=== PATIENT | male | born 1990 | race Caucasian/White ===

== ENCOUNTER 2017-07-30 20:30 | Emergency (ER) | payer SELFPAY ==
[2017-07-30 20:47] VITALS: RESP 16
[2017-07-30] MEDS ORDERED: AMOXICILLIN/CLAVULANATE POT 875/125 MG TAB PO ONE (20:52)
[2017-07-30] MEDS ORDERED: SULFAMETHOX/TMP 800/160 MG 1 TAB PO ONE (20:53)
--- NOTE | 2017-07-30 21:04 | EDPHY ---
H & P Time Seen by Provider: 07/30/17 20:38 HPI/ROS: HPI Ears swelling, neck pain. 27-year-old male by private vehicle with his mother. He has a history of body piercing. He wears large metal loops in both earlobes called gauges. He reports that he went to sleep last night and woke up this morning with his ear lobes very swollen, red and painful. No history of trauma. He took the gauges out. He also reports that he was wrestling with some friends and tackled 2 of them 2 weeks ago. Since that time he has had lower cervical upper thoracic pain mostly on the left side paraspinal. He reports that it is worse with extension of his head and neck. No loss of sensation or weakness in his extremities. He did not hit his head from this event. There was no loss of consciousness. ROS: Constitutional: No fever, no chills. No weakness. Eyes: No discharge. No changes in vision. ENT: No sore throat. No nasal congestion or rhinorrhea. As above. Respiratory: No cough. No shortness of breath. Cardiac: No chest pain, no palpitations. Musculoskeletal: As above. No extremity pain. Skin: No rashes. As above. Neurological: No headache. No focal weakness or altered sensation. Past medical history: Exercise-induced asthma, concussions, cellulitis in arm from staph infection years ago. Social history: With his mother. Denies alcohol. Nonsmoker. Physical Exam: General Appearance: Alert, no distress. This patient is responding to questions appropriately and in full sentences. This patient appears well- hydrated and well-nourished. Head: Normocephalic atraumatic except for multiple piercings with various earrings, spikes another hardware. Face: Facial bones are stable on palpation. Eyes: Pupils equal and round and reactive to light, no pallor or injection. No lid erythema or edema. ENT: Examination of his auricles bilaterally significant for erythema, swelling and a weeping purulent fluid involving the lobule of the auricle. Globules or significantly dilated from the large piercing/gauge is he has been wearing in them for some time. There is no drainable abscess. The erythema and swelling is isolated to just the lobule son does not involve the rest of the auricle or other ear soft tissue structures. No postauricular swelling, erythema or tenderness on palpation. There are superficial abrasions on the underside of the auricle tissue loops. This is likely the source of infection. Neurological: Motor sensory function is intact. Cranial nerves are normal. Cerebellar function intact. Skin: Warm and dry, no rashes. No lacerations, abrasions or contusions. Musculoskeletal: Neck is supple he has tenderness on palpation which is immediately paraspinal at C7-T1 and T2. No soft tissue swelling/edema, erythema. No bony step-off or deformity noted. The trachea is midline. No direct midline cervical, thoracic, lumbar or sacral tenderness on palpation. No flank tenderness on palpation. Extremities are symmetrical, full range of motion. All joints in the bilateral upper and bilateral lower extremities range without pain or impingement. No tenderness on palpation of the long bones in the bilateral upper and bilateral lower extremities. Psychiatric: No agitation. No depression. Database: EKG: Imaging: CT scan of cervical and upper thoracic spine: Negative for fracture, subluxation, dislocation. Discussed with staff radiologist Dr. Ezequiel Serrano. Procedures: Emergency department course: Vital signs reviewed and are normal. His medication allergies reviewed. He was started on Augmentin and Bactrim in the emergency department. I discussed CT imaging of his cervical spine. He had x-rays of the cervical spine performed by primary care physician and interpreted by that primary care physician. These were read as negative. This was 2 weeks ago. He and his mother endorse CT imaging. 9:50 p.m., patient re-evaluated. Resting comfortably at this time. He has had his antibiotics. Results of CT imaging discussed. Repeat neurologic Assessment is nonfocal. I will prescribe him a limited amount of Flexeril to help him sleep at night with his cervical upper thoracic strain. High-dose ibuprofen was discussed as well as his antibiotic prescriptions. He feels comfortable going home. Follow-up was reviewed with him and his mother. Return to emergency department precautions discussed. All of their questions were answered. He was discharged in good condition. Differential Diagnosis: The differential diagnosis on this patient includes but is not limited to cervical upper thoracic strain, cellulitis of the auricle lobule bilaterally. Abscess, mastoiditis, cervical/spinal fracture subluxation dislocation unlikely. This represents a partial list of diagnoses considered. These considerations are based on history, physical exam, past history, reassessment and diagnostic testing. Smoking Status: Former smoker Constitutional: Initial Vital Signs Temperature (C) 36.4 C 07/30/17 20:44 Heart Rate 68 07/30/17 20:44 Respiratory Rate 16 07/30/17 20:44 Blood Pressure 137/81 H 07/30/17 20:44 O2 Sat (%) 99 07/30/17 20:44 O2 Delivery Mode Room Air Allergies/Adverse Reactions: No Known Allergies Allergy (Verified 07/30/17 20:42) Home Medications: Medication Instructions Recorded Amoxicillin/Clavulanate Pot 875 mg PO BID 10 Days tab 07/30/17 [Augmentin 875 mg tab] Cyclobenzaprine [Flexeril 10 MG 07/30/17 (*)] Cyclobenzaprine [Flexeril 10 MG 10 mg PO TID #9 tab 07/30/17 (*)] Ibuprofen 07/30/17 Sulfamethox/Tmp 800/160 mg 1 tab PO BID@1000,2200 #20 tab 07/30/17 [Bactrim Ds] Medical Decision Making - Diagnostics Imaging Results: Imaging Impressions Cervical Spine CT 07/30/17 20:52 Impression: 1. Negative for fracture. 2. Query muscle spasm. Results called and discussed with Vicente Magallanes MD on 07/30/2017 at 21: 45 - Data Points Medications Given: Discontinued Medications Amoxicillin/Clavulanate Potassium (Augmentin 875mg) 875 mg PO EDNOW ONE PRN Reason: Protocol Stop: 07/30/17 20:53 Last Admin: 07/30/17 20:55 Dose: 875 mg Trimethoprim/Sulfamethoxazole (Bactrim Ds) 1 ea PO EDNOW ONE PRN Reason: Protocol Stop: 07/30/17 20:54 Last Admin: 07/30/17 20:56 Dose: 1 ea Departure - Departure Disposition: Home, Routine, Self-Care Clinical Impression: Cellulitis of earlobe, Cervical myofascial strain Condition: Good Instructions: Cervical Strain (ED), Cellulitis (ED) Additional Instructions: Read and follow provided instructions. Follow-up with your primary care physician in 2 days for re-evaluation. Take antibiotics as prescribed through entire course of treatment. Ibuprofen dosin mg every 6 hours with meals for the next 3 days only. Return to the emergency department for worsening symptoms, pain, loss of sensation or weakness in her extremities, fever, worsening swelling or discoloration of your ears or facial tissues or other serious concerns. Referrals: NONE *PRIMARY CARE P,. [Primary Care Provider] - As per Instructions Prescriptions: Amoxicillin/Clavulanate Pot [Augmentin 875 mg tab] 875 mg PO BID 10 Days tab Cyclobenzaprine [Flexeril 10 MG (*)] 10 mg PO TID #9 tab Sulfamethox/Tmp 800/160 mg [Bactrim Ds] 1 tab PO BID@1000,2200 #20 tab
[2017-07-30 22:04] VITALS: BP 125/71; PULSE 65; TEMP 97.7; O2SAT 97
== END 2017-07-30 22:02 | disposition home or self-care (01) ==
LOC: CED 20:30
DX: S16.1XXA Strain of muscle, fascia and tendon at neck level, initial encounter (principal); H60.12 Cellulitis of left external ear; J45.909 Unspecified asthma, uncomplicated; Z87.891 Personal history of nicotine dependence; X58.XXXA Exposure to other specified factors, initial encounter; Y99.8 Other external cause status; Y93.72 Activity, wrestling
CPT/HCPCS: 72125-PO